=== PATIENT | female | born 2000 | race Caucasian/White ===

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

== ENCOUNTER 2022-05-14 14:40 | Emergency (ER) | payer OTHER ==
[~2022-05-14] VITALS: Ht 167.6 cm; Wt 48.6 kg
[2022-05-14 14:42] VITALS: TEMP 98
[2022-05-14] MEDS ORDERED: NORCO 325 MG-51 TAB PO (16:33)
[2022-05-14] MEDS ORDERED: CRUTCHES MC (16:33)
[2022-05-14 17:29] VITALS: BP 112/61; PULSE 80
== END 2022-05-14 17:29 | disposition home or self-care (01) ==
LOC: COL.ER 14:40
PROVIDERS: Emergency Medicine
DX: S82.61XA Displaced fracture of lateral malleolus of right fibula, initial encounter for closed fracture (principal); S82.51XA Displaced fracture of medial malleolus of right tibia, initial encounter for closed fracture; Z79.01 Long term (current) use of anticoagulants; V89.2XXA Person injured in unspecified motor-vehicle accident, traffic, initial encounter; Y92.410 Unspecified street and highway as the place of occurrence of the external cause